=== PATIENT | male | born 1985 | race Two or more races ===

== ENCOUNTER 2020-06-11 13:06 | Emergency (ER) | payer OTHER ==
[2020-06-11] MEDS ORDERED: Codeine/Promethazine 10-6.25 MG/5 ML Syrup 5 ML UD Cup PO ONE (13:44)
--- NOTE | 2020-06-11 13:56 | EDM.PDOC ---
ED HPI GENERAL MEDICAL PROBLEM - General Chief Complaint: Respiratory Problem Stated Complaint: SOB/COUGH - + COVID Time Seen by Provider: 06/11/20 13:24 Source of Information: Reports: Patient, RN Notes Reviewed History Limitations: Reports: No Limitations - History of Present Illness INITIAL COMMENTS - FREE TEXT/NARRATIVE: Patient is a 34-year-old male who presents to the ED for the evaluation of his ongoing COVID symptoms. He states he was COVID + 2 weeks ago, everything was going fairly okay, but last night he could not get much sleep due to his cough. He states he still having fever, muscle aches, headache, chest discomfort due to the cough, and a dry intermittent hacking cough. He has been using Tylenol ibuprofen for the fever and aches and pains. O2 sats while at rest on room air is 95 to 96%. They did drop slightly with ambulation back to the room. He does not feel short of breath. He took his last dose of Tylenol at around 10:30 AM. He states that he is trying to take rtfy-lbs-immqyhy cough medications but these just do not help. Other than the above symptoms, he is not complaining of anything else. He states he is to return back to work on Saturday, but would like to get some cough relief prior to then. Headache Pain Score (Numeric/FACES): 9 - Related Data Allergies Allergy/AdvReac Type Severity Reaction Status Date / Time No Known Allergies Allergy Verified 06/11/20 13:19 Home Meds: Home Meds Codeine/Promethazine [Phenergan with Codeine] 5 ml PO Q4HR #120 ml 06/11/20 [Rx] Past Medical History Respiratory History: Reports: Pneumothorax - Infectious Disease History Infectious Disease History: Reports: Novel Coronavirus Social & Family History - Tobacco Use Smoking Status *Q: Never Smoker - Caffeine Use Caffeine Use: Reports: Coffee - Recreational Drug Use Recreational Drug Use: No ED ROS GENERAL - Review of Systems Review Of Systems: Comprehensive ROS is negative, except as noted in HPI. ED EXAM, GENERAL - Physical Exam Exam: See Below Exam Limited By: No Limitations General Appearance: Alert, WD/WN, No Apparent Distress (pt does have dry, hacking intermittent cough) Respiratory/Chest: No Respiratory Distress, Lungs Clear, Normal Breath Sounds, No Accessory Muscle Use, Chest Non-Tender Cardiovascular: Normal Peripheral Pulses, Regular Rate, Rhythm, No Edema, No Murmur Extremities: Normal Inspection, Normal Capillary Refill Neurological: Alert, Oriented, Normal Cognition, No Motor/Sensory Deficits Psychiatric: Normal Affect, Normal Mood Skin Exam: Warm, Dry, Intact, Normal Color, No Rash Course - Vital Signs Last Recorded V/S: Last Vital Signs Temp 99.9 F 06/11/20 13:11 Pulse 90 06/11/20 13:11 Resp 16 06/11/20 13:11 BP 135/80 06/11/20 13:11 Pulse Ox 90 L 06/11/20 13:11 - Orders/Labs/Meds Meds: Medications Discontinued Medications Generic Name Dose Route Start Last Admin Trade Name Freq PRN Reason Stop Dose Admin Promethazine HCl/Codeine 5 ml 06/11/20 13:44 06/11/20 14:23 Phenergan With Codeine PO 06/11/20 13:45 5 ml ONETIME ONE Administration - Re-Assessments/Exams Free Text/Narrative Re-Assessment/Exam: 06/11/20 13:59 Patient presents to the ED for evaluation of his ongoing COVID-19 symptoms. I did offer to do chest x-ray, and laboratory evaluation, but he declined and states he simply would like something for the cough, to see if this helps get him some relief. I will give him a dose of Phenergan and codeine here, and provide him with a prescription for this for outpatient use. This is okay with the gentleman, and he will discharge home with other general recommendations. I did tell him he should follow-up with the COVID clinic on Saturday, for retesting, to make sure that he is not still testing positive, so he can return to work safely. He states he will do as such. Departure - Departure Time of Disposition: 13:47 Disposition: Home, Self-Care 01 Condition: Good Clinical Impression: Cough, COVID-19 - Discharge Information *PRESCRIPTION DRUG MONITORING PROGRAM REVIEWED*: Yes *COPY OF PRESCRIPTION DRUG MONITORING REPORT IN PATIENT JOVI: No Prescriptions: Codeine/Promethazine [Phenergan with Codeine] 5 ml PO Q4HR #120 ml Instructions: COVID-19 Referrals: PCP,None [Primary Care Provider] - Forms: ED Department Discharge Additional Instructions: You were seen in the ER today for ongoing and/or worsening respiratory symptoms. Your oxygen levels were acceptable at 95-96% on room air. It is recommended at this time that you go home and self quarantine and try to limit exposure to other as much as possible. Please try to increase your oral fluid intake, and eat multiple small meals throughout the day, to keep yourself healthy. You were given a prescription cough medication, please take 5 to 10 mL's by mouth every 4 hours as needed for cough. This was electronically prescribed to the [facility] located [facility] the [facility]. You may take 500 mg Tylenol and 600 mg ibuprofen every hours 6 hours for pain/fever relief. You may do this in alternating fashion so you are taking the medicine every 3 hours. Do not exceed 4000 mg Tylenol in a 24-hour time span. However, running a fever is your body's natural response to illness, and it allows the body to develop antibodies to disease, we are recommending trying to limit the use of Tylenol as much as possible to allow your body's natural immune response. Sepsis Event Note (ED) - Evaluation Sepsis Screening Result: No Definite Risk - Focused Exam Vital Signs: Vital Signs Temp Pulse Resp BP Pulse Ox 06/11/20 13:11 99.9 F 90 16 135/80 90 L
== END 2020-06-11 14:28 | disposition home or self-care (01) ==
LOC: JD.ED 13:06
DX: U07.1 COVID-19 (principal)
CPT/HCPCS: 99283; A9270